=== PATIENT | male | born 1995 | race Two or more races ===

== ENCOUNTER 2025-02-04 16:17 | Emergency (ER) | payer MEDICAID, SELFPAY ==
[2025-02-04 16:25] VITALS: BP 129/90; PULSE 93; RESP 18; TEMP 36.8; O2SAT 98
--- NOTE | 2025-02-04 16:27 | XR_ITS ---
Examination: Hand, right 3 views Technique: Hand AP, oblique, lateral 3 views Date and time of exam: February 04, 2025 1634 hrs. Indications: Injured the hand today, hand pain. Findings: Acute fractures base of the fifth metacarpal, 9 mm fracture fragment displaced toward the fourth metacarpal side No definite dislocation at the carpometacarpal joint Impression: Acute fractures bases of the fifth metacarpal
[2025-02-04] MEDS: IBUPROFEN TAB 400 MG TABLET 800 MG PO (16:52)
--- NOTE | 2025-02-04 17:14 | PD.EDHAND ---
Upper Extremity Injury RME/HPI General Chief Complaint: Hand/Wrist Problems Stated Complaint: RIGHT HAND INJURY Time Seen by Provider: 02/04/25 16:27 Arrival date/time: 02/04/25 16:17 29-year-old male presents to the emergency room today for complaint of right hand injury patient reports pain to the dorsal aspect of his right hand Limitations: no limitations Related Data Previous Rx's ?Medication ?Instructions ?Recorded epinephrine 0.3 mg/0.3 mL 0.3 mg (0.3 mL) subcut .once #2 ea 09/14/17 injection, auto-injector (EpiPen) hydrocodone 5 mg-acetaminophen 325 1 tab PO BID PRN pain #10 tabs 02/04/25 mg tablet ibuprofen 600 mg tablet 600 mg PO Q6H #30 tabs 02/04/25 Allergies Allergy/AdvReac Type Severity Reaction Status Date / Time bee venom protein (honey bee) Allergy Unknown SWELLING Verified 05/06/18 13:29 Review of Systems Review of Systems Systems Reviewed: All systems reviewed, normal except as documented Constitutional Constitutional: Reports system reviewed and no additional complaints, except as documented, Denies fever(s) and Denies headache(s) Eyes Eyes: Reports system reviewed and no additional complaints, except as documented and Denies blurry vision ENT Ears, Nose, Mouth, and Throat: Reports system reviewed and no additional complaints, except as documented, Denies headache(s), Denies nasal congestion and Denies nasal discharge Cardiovascular Cardiovascular: Reports system reviewed and no additional complaints, except as documented, Denies chest pain and Denies dyspnea Respiratory Respiratory: Reports system reviewed and no additional complaints, except as documented, Denies chest congestion, Denies cough and Denies dyspnea Gastrointestinal Gastrointestinal: Reports system reviewed and no additional complaints, except as documented and Denies abdominal pain Integumentary/Breasts Skin/Breast: Reports system reviewed and no additional complaints, except as documented and Denies rash Neurologic Neurologic: Reports system reviewed and no additional complaints, except as documented, Reports as per HPI and Denies headache(s) Past Medical History Past Medical History NEUROLOGIC: Negative Neurological Disorders CARDIAC: Negative Cardiac Disorders or Congestive Heart Failure RESPIRATORY: Negative Chronic Obstructive Pulmonary Disease (COPD) GENITOURINARY: Negative Genitourinary Disorders or Renal Disease MUSCULOSKELETAL: Positive Musculoskeletal Disorders ENDOCRINE: Negative Endocrine Disorders, Diabetes Mellitus Type 1 or Diabetes Mellitus Type 2 OTHER HISTORY: Negative Autoimmune Disease Family History FAMILY HISTORY: Negative Family Cardiac Disorders Social History SMOKING STATUS: Never smoker ED Exam General Limitations: Present no limitations General appearance: Present alert and in no apparent distress Head Head exam: Present atraumatic Eye Eye exam: Present normal appearance, PERRL and EOMI ENT ENT exam: Present normal exam, normal oropharynx and mucous membranes moist Neck Neck exam: Present normal inspection, full ROM and trachea midline Chest Chest inspection: Present normal inspection and symmetric chest wall rise Respiratory Respiratory exam: Present normal lung sounds bilaterally Cardiovascular Cardiovascular exam: Present regular rate, normal rhythm and normal heart sounds Abdominal Exam Abdominal exam: Present soft and normal bowel sounds Extremities Exam Extremities exam: Present normal inspection and full ROM Back Exam Back exam: Present normal inspection and full ROM Neurological Exam Neurological exam: Present alert, oriented X3 and CN II-XII intact Psychiatric Psychiatric exam: Present normal affect and normal mood Skin Skin exam: Present warm, dry, intact and normal color Course Quality Measures none Orders Category Date Time Status XR hand comp RT min 3V Stat Exams 02/04/25 16:27 Completed Ibuprofen Tab [Motrin Tab] Med 02/04/25 16:27 Discontinued 800 mg PO X1 ONE Vital Signs Vital signs: Vital Signs Temperature 98.2 F 02/04/25 16:25 Pulse Rate 93 02/04/25 16:25 Respiratory Rate 18 02/04/25 16:25 Blood Pressure 129/90 H 02/04/25 16:25 Pulse Oximetry (%) 98 02/04/25 16:25 Oxygen Delivery Method Room Air 02/04/25 16:25 O2 saturation 98% on room air within the limits PROCEDURES: Splint Fabrication: Clinician Made Type: Brian Reason for Splint: Optimal Positioning Circulation Distal to Splint: Yes Movement Distal to Splint: Yes Senation Distal to Splint: Yes Tolerance: Tolerates Well Extremity Injury MDM Narrative MDM Narrative:: 29-year-old male presents to the emergency room today for complaint of right hand injury patient reports pain to the dorsal aspect of his right hand On exam patient well-appearing patient is not appear toxic no distress On exam patient has swelling of the right hand patient has decreased range of motion secondary pain and swelling no definite deformity noted X-ray of the right hand obtained consistent with fracture Patient placed in a splint Patient discharged home in no distress to follow-up with primary care doctor in the next 24 to 48 hours and for any worsening symptoms to return to the ER immediately Patient instructed to follow-up with orthopedist soon as possible Patient data External records reviewed:: [facility] previous records Clinical information provided by:: patient Social determinants that could affect healthcare access:: none Patient has the following chronic illnesses:: None How is presenting disease/condition affected by chronic disease/condition?: no chronic disease Evaluation data The following diagnostics were reviewed and interpreted by me:: radiology exam(s) Lab and/or radiology exams considered but not ordered:: Radiology obtained Interpretation Summary: Reviewed by me Medications / Prescriptions Medications or Prescriptions considered but not ordered:: Given Medication administrations:: Medication Administration History Discontinued Medications Ibuprofen (Ibuprofen Tab 400 Mg Tablet) 800 mg PO X1 ONE Stop: 02/04/25 16:28 Last Admin: 02/04/25 16:52 Dose: 800 mg Documented By: VG Given Consultations Consultation(s) initiated? (list below): No Diagnosis Upper Extremity Injury Differential Diagnosis: other Most likely diagnosis given after review of the tests above:: Fracture of hand Admission Indicated Admission indicated?: not indicated Admission Request Was there a request for admission?: No Disposition Plan Disposition Plan: Discharge Discharge Attestation Discharge Attestation: The patient and all family members were given an opportunity to ask questions and understood the discharge instructions. Discharge instructions specifically effects, indications for sooner follow up or return to the emergency department, and the expected course of current diagnosis. Patient condition: Stable Discharge Plan Plan Patient Disposition: HOME (Self Care) Discharge Disposition comment: Stable Prescriptions/Referrals Prescriptions/Med Rec: New hydrocodone-acetaminophen 5-325 mg tablet 1 tab PO BID MDD 10 PRN (Reason: pain) Qty: 10 0RF ibuprofen 600 mg tablet 600 mg PO Q6H Qty: 30 0RF No Action epinephrine [EpiPen] 0.3 mg/0.3 mL auto-injector 0.3 mg SC .once Qty: 2 0RF Referrals: Jean Pierre Stark Jr., MD [Primary Care Provider] - 02/05/25 Problem List Clinical Impression: Fracture of right hand Patient/Caregiver Discharge Instructions Education Materials: How [employer] [facility] Additional Instructions: Please follow up with your primary care doctor in the next 24-48hrs for any worsening symptoms return here immediately You must see your PCP in order get a referral to orthopedist Print Language: Persian Stand Alone Forms: Susu Award Info., Work/School Release, Patient Portal Info Letter PA/POLICE [employer]RON Supervising Physician PA/POLICE [employer] Supervising Physician: Dr. alex
== END 2025-02-04 17:26 | disposition home or self-care (01) ==
PROVIDERS: Emergency Provider Family Medicine; PCP Internal Medicine
DX: S62.316A Displaced fracture of base of fifth metacarpal bone, right hand, initial encounter for closed fracture (principal); X58.XXXA Exposure to other specified factors, initial encounter
CPT/HCPCS: 29125; 73130; 99283; A9270

== ENCOUNTER 2025-04-24 15:25 | Emergency (ER) | payer MEDICAID, SELFPAY ==
[2025-04-24 15:41] VITALS: BMI 23.4
[2025-04-24 16:06] VITALS: BP 130/81; PULSE 89; RESP 18; TEMP 36.6; O2SAT 100; BMI 21.3
--- NOTE | 2025-04-24 16:15 | EDNOTE_ITS ---
ED Dental RME/HPI General Chief complaint: Dental/Oral/Throat Stated complaint: Left cheek swollen X 2 days, broken tooth Time Seen by Provider: 04/24/25 16:15 Arrival date/time: 04/24/25 15:25 RME / HPI RME / HPI Narrative: See [facility] for Dr. Hopper's HPI Documentation. Related Data Previous Rx's ?Medication ?Instructions ?Recorded epinephrine 0.3 mg/0.3 mL 0.3 mg (0.3 mL) subcut .once #2 ea 09/14/17 injection, auto-injector (EpiPen) hydrocodone 5 mg-acetaminophen 325 1 tab PO BID PRN pa in #10 tabs 02/04/25 mg tablet ibuprofen 600 mg tablet 600 mg PO Q6H #30 tabs 02/04 acetaminophen 300 mg-codeine 30 mg 2 tab PO Q8H PRN pa in #12 tabs 04/24/25 tablet amoxicillin 875 mg-potassium 1 tab PO BID #20 tabs 11/11 clavulanate 125 mg tablet Allergies Allergy/AdvReac Type Severity Reaction Status Date / Time bee venom protein (honey bee) Allergy Unknown SWELLING Verified 04/24/25 15:29 Review of Systems Review of Systems Systems Reviewed: All systems reviewed, normal except as documented Past Medical History Past Medical History MUSCULOSKELETAL: Positive Musculoskeletal Disorders Social History SMOKING STATUS: Current every day smoker SUBSTANCE USE: does not use ALCOHOL: Never Course Quality Measures none Vital Signs Vital signs: Vital Signs Temperature 97.8 F 04/24/25 16:06 Pulse Rate 89 04/24/25 16:06 Respiratory Rate 18 04/24/25 16:06 Blood Pressure 130/81 04/24/25 16:06 Pulse Oximetry (%) 100 04/24/25 16:06 Oxygen Delivery Method Room Air 04/24/25 16:06 Dental / Oral MDM Narrative [facility] Narrative:: This section includes all my notes and documentations, including HPI, PE, and ED course. Dean Hopper MD HPI: 29-year-old male here with several weeks of dental pain diffusely. No fever or chills. No other complaints. ROS: All negative except as documented in HPI. Physical Exam: General: Alert and oriented. Eyes: Conjunctivae and lids clear. ENT: No nasal congestion. Pharynx normal. TM normal bilaterally. In the mouth, many dental caries noted with edematous and erythematous and tender gums. Neck: Supple. Lungs: No respiratory distress. Skin: Warm and dry. Neuro: Alert and oriented X 3. Made clinical diagnosis of: Infected dental caries Prescribe ABX and recommended outpatient dental care. Based on my best medical judgment, made decision no further evaluation or treatment indicated at this time. Patient understands and agrees to the discharge instructions customized and printed, see below. Discharge Instructions from Dr. Hopper: --After evaluation, your dental pain is due to an underlying infection.?? --Take Augmentin to help kill the germs causing your infection.? Unless we treat the underlying infection, pain medications won?t work.?? -- Ibuprofen 600 mg every 6-8 hours today and tomorrow to decrease inflammation then as needed..? Will work better with the antibiotics.? --Tylenol with codeine for severe pain. --Apply topical viscous lidocaine as needed.? Soak Lidocaine in a gauze and apply in the area of pain for 15 minutes to help the pain for a couple of hours.?? --Most importantly, see a dentist of your choice on 04/26/2025 for definitive treatment you need not available in the ER.? You will need to call dental offices in all surrounding towns to find a dentist who can see you and treat you right away.? ?Seek immediate medical care with fever or with any concerns. Dean Hopper MD Patient data External records reviewed:: [facility] previous records Clinical information provided by:: patient Social determinants that could affect healthcare access:: other (specify) (Current smoker) Patient has the following chronic illnesses:: Denies any PMHx or surgeries. How is presenting disease/condition affected by chronic disease/condition?: no chronic disease Evaluation data The following diagnostics were reviewed and interpreted by me:: other (specify) (none) Lab and/or radiology exams considered but not ordered:: none Interpretation Summary: No diagnostic tests ordered. Medications / Prescriptions Medications or Prescriptions considered but not ordered:: none Medication administrations:: none Consultations Consultation(s) initiated? (list below): No Diagnosis Dental Differential Diagnosis: gingival abscess, dental caries, toothache and dental abscess Most likely diagnosis given after review of the tests above:: Infected dental caries Admission Indicated Admission indicated?: not indicated Explain why admission is indicated or not indicated:: With no condition needing emergent intervention, there was no indication for admission. Admission Request Was there a request for admission?: No Disposition Plan Disposition Plan: Discharge Discharge Attestation Discharge Attestation: The patient and all family members were given an opportunity to ask questions and understood the discharge instructions. Discharge instructions specifically effects, indications for sooner follow up or return to the emergency department, and the expected course of current diagnosis. Patient condition: Stable Discharge Plan Plan Patient Disposition: HOME (Self Care) Prescriptions/Referrals Prescriptions/Med Rec: New acetaminophen-codeine 300-30 mg tablet 2 tab PO Q8H MDD 6 PRN (Reason: pain) Qty: 12 0RF amoxicillin-pot clavulanate 875-125 mg tablet 1 tab PO BID Qty: 20 0RF No Action epinephrine [EpiPen] 0.3 mg/0.3 mL auto-injector 0.3 mg SC .once Qty: 2 0RF hydrocodone-acetaminophen 5-325 mg tablet 1 tab PO BID MDD 10 PRN (Reason: pain) Qty: 10 0RF ibuprofen 600 mg tablet 600 mg PO Q6H Qty: 30 0RF Problem List Clinical Impression: Infected dental caries Patient/Caregiver Discharge Instructions Discharge Activity: activity as tolerated Education Materials: ED Dental Cavity, ED Tooth Abscess Additional Instructions: Discharge Instructions from Dr. Hopper: --After evaluation, your dental pain is due to an underlying infection.?? --Take Augmentin to help kill the germs causing your infection.? Unless we treat the underlying infection, pain medications won?t work.?? -- Ibuprofen 600 mg every 6-8 hours today and tomorrow to decrease inflammation then as needed..? Will work better with the antibiotics.? --Tylenol with codeine for severe pain. --Apply topical viscous lidocaine as needed.? Soak Lidocaine in a gauze and apply in the area of pain for 15 minutes to help the pain for a couple of hours.?? --Most importantly, see a dentist of your choice on 04/26/2025 for definitive treatment you need not available in the ER.? You will need to call dental offices in all surrounding towns to find a dentist who can see you and treat you right away.? ?Seek immediate medical care with fever or with any concerns. Print Language: Bahamian Stand Alone Forms: Susu Award Info., Patient Portal Info Letter
== END 2025-04-24 16:23 | disposition home or self-care (01) ==
PROVIDERS: Emergency Provider Emergency Medicine
DX: K04.7 Periapical abscess without sinus (principal); K02.9 Dental caries, unspecified
CPT/HCPCS: 99281